=== PATIENT | male | born 1945 | race Caucasian/White ===

== ENCOUNTER 2021-03-28 22:04 | Emergency (ER) | payer MEDICARE, OTHER ==
--- NOTE | 2021-03-28 23:52 | EDM.PDOC ---
ED HPI GENERAL MEDICAL PROBLEM - General Chief Complaint: Genitourinary Problem Stated Complaint: URINARY ISSUES AND CHILLS Time Seen by Provider: 03/28/21 23:40 Source of Information: Reports: Patient, Family () History Limitations: Reports: No Limitations - History of Present Illness INITIAL COMMENTS - FREE TEXT/NARRATIVE: chief complaint: painful urination- bladder infection This is a 75 year old male present to the the ER with , reports yesterday started to have painful urination, frequency and chills. This afternoon symptoms progressively worse. reports had a bladder infection years ago. Denies any fever, nausea, vomiting, back pain or other symptoms. Onset Date: 03/27/21 Duration: Getting Worse Quality: Reports: Ache, Burning, Pressure, Same as Previous Episode (feels like previous bladder infection), Sharp Severity: Moderate Improves with: Reports: None Worsens with: Reports: Other (urination) Associated Symptoms: Reports: Fever/Chills (no fever, has chills.) Bladder Pain Score (Numeric/FACES): 6 - Related Data Allergies Allergy/AdvReac Type Severity Reaction Status Date / Time oxycodone Allergy Rash Verified 03/28/21 22:59 Home Meds: Home Meds FLUoxetine HCl [Fluoxetine HCl] 1 cap PO DAILY 03/28/21 [History] Omeprazole 1 cap PO DAILY 03/28/21 [History] atorvaSTATin [Lipitor] 1 tab PO DAILY 03/28/21 [History] hydroCHLOROthiazide [Hydrochlorothiazide] 1 tab PO DAILY 03/28/21 [History] lisinopriL [Lisinopril] 1 tab PO DAILY 03/28/21 [History] Past Medical History HEENT History: Reports: Impaired Vision Cardiovascular History: Reports: High Cholesterol, Hypertension Respiratory History: Reports: Sleep Apnea Gastrointestinal History: Reports: GERD Genitourinary History: Reports: Chronic Renal Insuffiency, Renal Calculus, Renal Disease Musculoskeletal History: Reports: Fracture Psychiatric History: Reports: Depression Oncologic (Cancer) History: Reports: Basal Cell Carcinoma, Squamous Cell Carcinoma Dermatologic History: Reports: Other (See Below) - Infectious Disease History Infectious Disease History: Reports: Chicken Pox, Measles, Mumps - Past Surgical History HEENT Surgical History: Reports: Naso-Sinus Surgery GI Surgical History: Reports: Colonoscopy Social & Family History - Tobacco Use Tobacco Use Status *Q: Never Tobacco User - Caffeine Use Caffeine Use: Reports: Coffee, Soda - Recreational Drug Use Recreational Drug Use: No ED ROS GENERAL - Review of Systems Review Of Systems: See Below Constitutional: Reports: Chills, Malaise HEENT: Reports: No Symptoms Respiratory: Reports: No Symptoms Cardiovascular: Reports: No Symptoms Endocrine: Reports: No Symptoms GI/Abdominal: Reports: Abdominal Pain (low pelvic pain) : Reports: Dysuria, Frequency, Urgency. Denies: Flank Pain Musculoskeletal: Reports: No Symptoms Skin: Reports: No Symptoms Neurological: Reports: No Symptoms Psychiatric: Reports: No Symptoms Hematologic/Lymphatic: Reports: No Symptoms Immunologic: Reports: No Symptoms ED EXAM, GI/ABD - Physical Exam Exam: See Below Exam Limited By: No Limitations General Appearance: Alert, WD/WN, No Apparent Distress, Other (neat and well groomed, pleasant Couple. polite) Eyes: Bilateral: Normal Appearance (wearing glasses) Ears: Normal External Exam Nose: Normal Inspection Throat/Mouth: Normal Inspection Head: Atraumatic, Normocephalic Neck: Normal Inspection, Supple, Non-Tender, Full Range of Motion Respiratory/Chest: No Respiratory Distress, Lungs Clear, Normal Breath Sounds, No Accessory Muscle Use, Chest Non-Tender Cardiovascular: Normal Peripheral Pulses, Regular Rate, Rhythm, No Edema, No Murmur GI/Abdominal Exam: Normal Bowel Sounds, Soft, Non-Tender, No Distention, No Abnormal Bruit (Male) Exam: Deferred. No: Circumcised Rectal (Males) Exam: Deferred Back Exam: Normal Inspection, Full Range of Motion. No: CVA Tenderness (R), CVA Tenderness (L) Extremities: Normal Inspection, Normal Range of Motion, Non-Tender, No Pedal Edema, Normal Capillary Refill Neurological: Alert, Oriented, CN II-XII Intact, Normal Cognition, Normal Gait, Normal Reflexes, No Motor/Sensory Deficits Psychiatric: Normal Affect, Normal Mood Skin Exam: Warm, Dry, Intact, Normal Color, No Rash Lymphatic: No Adenopathy Course - Vital Signs Last Recorded V/S: Last Vital Signs Temp 97.2 F 03/28/21 22:58 Pulse 83 03/28/21 22:58 Resp 16 03/28/21 22:58 BP 142/66 H 03/28/21 22:58 Pulse Ox 100 03/28/21 22:58 - Orders/Labs/Meds Orders: Active Orders 24 hr Category Date Time Status CULTURE URINE [RM] Stat Lab 03/28/21 23:52 Ordered Labs: Laboratory Tests 03/28/21 Range/Units 22:30 Urine Color Yellow (YELLOW) Urine Appearance Slightly cloudy A (CLEAR) Urine pH 6.5 (5.0-8.0) Ur Specific Castor 1.010 (1.008-1.030) Urine Protein Negative (NEGATIVE) mg/dL Urine Glucose (UA) Negative (NEGATIVE) mg/dL Urine Ketones Negative (NEGATIVE) mg/dL Urine Occult Blood Moderate H (NEGATIVE) Urine Nitrite Negative (NEGATIVE) Urine Bilirubin Negative (NEGATIVE) Urine Urobilinogen 0.2 (0.2-1.0) EU/dL Ur Leukocyte Esterase Moderate H (NEGATIVE) Urine RBC 0-5 (0-5) Urine WBC 20-30 H (0-5) Ur Epithelial Cells Rare Amorphous Sediment Not seen Urine Bacteria Few Urine Mucus Not seen - Re-Assessments/Exams Free Text/Narrative Re-Assessment/Exam: 03/29/21 00:05 discussed urine result positive for urinary tract infection +WBC+Leukocytes will order medication- Cipro po bid, and Pyridium for bladder pain urine culture pending discussed bladder infection and outpt care. and follow up meds, push fluids, rest, return to ER if not improved or symptoms worse. and Mrs. Reed agree with plan of care Departure - Departure Time of Disposition: 23:50 Disposition: Home, Self-Care 01 Condition: Good Clinical Impression: UTI, Urinary tract infectious disease - Discharge Information *PRESCRIPTION DRUG MONITORING PROGRAM REVIEWED*: Not Applicable *COPY OF PRESCRIPTION DRUG MONITORING REPORT IN PATIENT ABHIJEET: Not Applicable Instructions: Urinary Tract Infection, Adult, [id number] Referrals: JAZZ FOSS MD [Other] Forms: ED Department Discharge Care Plan Goals: Urinary Tract Infection- bladder infection -start tonight Cipro one tablet two times a day til gone -start tonight Pyridium one tablet for bladder pain and spasms, then as directed -push fluids -follow up in Primary Care for recheck in 10 day Return to ER for any fever, chills, nausea, vomiting, rash, worsen symptoms or not improved. Sepsis Event Note (ED) - Evaluation Sepsis Screening Result: No Definite Risk - Focused Exam Vital Signs: Vital Signs Temp Pulse Resp BP Pulse Ox 03/28/21 22:58 97.2 F 83 16 142/66 H 100 03/28/21 22:42 97.2 F 83 16 142/66 H 100 - Problem List & Annotations (1) UTI, Urinary tract infectious disease SNOMED Code(s): 34445042 Code(s): N39.0 - URINARY TRACT INFECTION, SITE NOT SPECIFIED Status: Acute Priority: High Current Visit: Yes - Problem List Review Problem List Initiated/Reviewed/Updated: Yes - My Orders Last 24 Hours: My Active Orders 03/28/21 23:52 CULTURE URINE [RM] Stat - Assessment/Plan Last 24 Hours: My Active Orders 03/28/21 23:52 CULTURE URINE [RM] Stat Plan: Urinary Tract Infection- bladder infection -start tonight Cipro one tablet two times a day til gone -start tonight Pyridium one tablet for bladder pain and spasms, then as directed -push fluids -follow up in Primary Care for recheck in 10 day Return to ER for any fever, chills, nausea, vomiting, rash, worsen symptoms or not improved.
== END 2021-03-29 00:10 | disposition home or self-care (01) ==
LOC: JP.ED 22:04
DX: N39.0 Urinary tract infection, site not specified (principal); E78.00 Pure hypercholesterolemia, unspecified; I12.9 Hypertensive chronic kidney disease with stage 1 through stage 4 chronic kidney disease, or unspecified chronic kidney disease; K21.9 Gastro-esophageal reflux disease without esophagitis; N18.9 Chronic kidney disease, unspecified; Z79.899 Other long term (current) drug therapy; Z88.5 Allergy status to narcotic agent
CPT/HCPCS: 81001; 87086; 87088; 87186; 99283